=== PATIENT | female | born 1970 | race Asian ===

== ENCOUNTER 2016-08-06 17:20 | Emergency (ER) | payer OTHER ==
[~2016-08-06] VITALS: Ht 147.3 cm; Wt 48.1 kg
[2016-08-06 17:26] VITALS: BP 132/73
== END 2016-08-06 19:15 | disposition home or self-care (01) ==
LOC: ER 17:20
DX: J20.9 Acute bronchitis, unspecified (principal)
CPT/HCPCS: 71010; 99283; A4606; Z7610

== ENCOUNTER 2017-05-28 16:38 | Emergency (ER) | payer OTHER ==
[~2017-05-28] VITALS: Ht 160 cm; Wt 50.9 kg
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
--- NOTE | 2017-05-28 19:00 | NUR ---
RECEIVED REPORT FROM RHONDA ADLER.
--- NOTE | 2017-05-28 19:39 | NUR ---
PT OK TO DISCHARGE PER DR PALMER. Patient discharged to home in stable condition. Written and verbal after care instructions given. Patient verbalizes understanding of instruction.Patient is awake and alert to self, day, and place. PT ambulatory with a steady gait
[2017-05-28 19:55] VITALS: BP 128/66
== END 2017-05-28 19:55 | disposition home or self-care (01) ==
LOC: ER 16:41
DX: S69.82XA Other specified injuries of left wrist, hand and finger(s), initial encounter (principal); S69.81XA Other specified injuries of right wrist, hand and finger(s), initial encounter; S89.82XA Other specified injuries of left lower leg, initial encounter; V49.49XA Driver injured in collision with other motor vehicles in traffic accident, initial encounter; Y93.89 Activity, other specified; Y92.413 State road as the place of occurrence of the external cause; Y99.8 Other external cause status
CPT/HCPCS: 73110; 73130-TC; 73564-TC; A4606; Z7610

== ENCOUNTER 2019-05-05 10:17 | Emergency (ER) | payer BC, OTHER ==
[~2019-05-05] VITALS: Ht 149.9 cm; Wt 46.3 kg
[2019-05-05 10:32] VITALS: BP 114/70
[2019-05-05] MEDS ORDERED: AMOX/CLAVULANATE 875 MG TABLET ONE (11:26)
[2019-05-05] MEDS ORDERED: AMOX/CLAVULANATE 875 MG TABLET PO ONE (11:30)
== END 2019-05-05 11:36 | disposition home or self-care (01) ==
LOC: ER 10:21
DX: S61.431A Puncture wound without foreign body of right hand, initial encounter (principal); W55.01XA Bitten by cat, initial encounter; Y93.89 Activity, other specified; Y92.89 Other specified places as the place of occurrence of the external cause; Y99.8 Other external cause status

== ENCOUNTER 2021-09-12 13:06 | Inpatient (IN) | payer BC ==
[~2021-09-12] VITALS: Ht 147.3 cm; Wt 49.0 kg
[2021-09-12] VITALS (9 sets, daily range): BP systolic 118–152; BP diastolic 66–102
--- NOTE | 2021-09-12 13:35 | NUR ---
BIBSELF C/O MIDSTERNAL CHEST PRESSURE 8/10 RAD TO LT CHEST, LT ARM & JAW WITH SOB SINCE 1115. DENIES DIZZINESS, ESQUIVEL, N/V. IN ROOM AIR AND OXYGEN SATURATION LEVEL IS AT 97%. RESPIRATION REGULAR AND UNLABORED. ATTACHED THE PATIENT TO THE MONITOR. WARM BLANKET PROVIDED FOR COMFORT. WILL CONTINUE TO MONITOR THE PATIENT.
--- NOTE | 2021-09-12 13:35 | NUR ---
Note undone in EDM - 09/12/21 at 1418 by JONNATHAN BIBSELF C/O MIDSTERNAL CHEST PRESSURE 8/10 RAD TO LT CHEST, LT ARM & JAW WITH SOB SINCE 1114. DENIES DIZZINESS, ESQUIVEL, N/V. IN ROOM AIR AND DENIES SOB. RESPIRATION REGULAR AND UNLABORED. ATTACHED THE PATIENT TO THE MONITOR. WARM BLANKET PROVIDED FOR COMFORT. WILL CONTINUE TO MONITOR THE PATIENT.
--- NOTE | 2021-09-12 14:00 | NUR ---
IV LINE IS ESTABLISHED, BLOOD SPECIMEN COLLECTED AND SENT TO THE LAB. THE LINE IS SALINE LOCKED.
--- NOTE | 2021-09-12 14:19 | NUR ---
X-RAT TECH AT THE BEDSIDE
[2021-09-12] MEDS ORDERED: NITROGLYCERIN 0.4 MG/TAB BOTTLE ONE (14:27)
[2021-09-12] MEDS ORDERED: ASPIRIN 325 MG TABLET ONE (14:27)
[2021-09-12] MEDS ORDERED: NITROGLYCERIN 0.4 MG/TAB BOTTLE SL ONE (14:30)
[2021-09-12] MEDS ORDERED: ASPIRIN 325 MG TABLET PO ONE (14:30)
[2021-09-12 14:53] LABS: BASOPHILS # (AUTO) 0.1 K/uL (0.0-0.2); BASOPHILS % (AUTO) 0.6 % (0.0-2.0); EOSINOPHILS % (AUTO) 1.4 % (0.0-6.0); HEMATOCRIT 38 % (33-45); LYMPHOCYTES # (AUTO) 1.4 K/uL (0.8-4.8); LYMPHOCYTES % (AUTO) 15.4 % (20.0-44.0); MEAN CORPUSCULAR HGB CONC 34 g/dl (31.0-36.0); MEAN CORPUSCULAR VOLUME 98 fL (82-100); MONOCYTES # (AUTO) 0.3 K/uL (0.1-1.30); MONOCYTES % (AUTO) 3.7 % (2.0-12.0); NEUTROPHILS # (AUTO) 7.3 K/uL (1.8-8.9); NEUTROPHILS % (AUTO) 78.9 % (43.0-81.0); PLATELET COUNT (AUTO) 289 K/uL (150-450); RED BLOOD CELL COUNT(AUTO) 3.91 MIL/uL (4.0-5.2); WHITE BLOOD COUNT (AUTO) 9.3 K/uL (4.3-11.0)
[2021-09-12 15:19] LABS: CALCIUM, SERUM 8.7 mg/dL (8.5-10.1); CARBON DIOXIDE 28 mmol/L (21-32); CHLORIDE 104 mmol/L (98-107); CREATININE 0.6 mg/dL (0.6-1.3); GLUCOSE 99 mg/dL (74-106); POTASSIUM 3.5 mmol/L (3.5-5.1); SODIUM SERUM 137 mmol/L (136-145); UREA NITROGEN, BLOOD 11 mg/dL (7-18)
[2021-09-12] MEDS ORDERED: HEPARIN SODIUM, PORCINE 5000 UNITS/1 ML VIAL IV ONE ×3 (17:00→18:00)
[2021-09-12] MEDS ORDERED: HEPARIN INFUSION/D5W 500 ML IV ONE ×2 (17:00→18:00)
[2021-09-12] MEDS ORDERED: NITROGLYCERIN PACKET 1 GM PACKET TOP ONE (17:00)
[2021-09-12] MEDS ORDERED: NITROGLYCERIN PACKET 1 GM PACKET ONE (17:07)
--- NOTE | 2021-09-12 17:19 | NUR ---
COVID ANTIGEN SWAB AND SENT TO LAB
[2021-09-12] MEDS ORDERED: HEPARIN SODIUM, PORCINE 5000 UNITS/1 ML VIAL ONE (17:26)
--- NOTE | 2021-09-12 17:28 | NUR ---
RECEIVED NEW ORDER FROM DR WALTERS TO DISCONTINUE HEPARIN 2800 UNITS. THE ORDER IS READ BACK, VERIFIED. NOTED AND CARRIED OUT. NEW ORDER PER DR WALTERS: TO GIVEN HEPARIN 3430 UNITS IV ONCE. THE ORDER IS READ BACK, VERIFIED. NOTED AND CARRIED OUT.
--- NOTE | 2021-09-12 17:44 | NUR ---
DR WALTERS CHANGED HEPARIN IV PUSH ORDER. DISCONTINUE HEPARIN 3430 IV PUSH ONCE. NEW ORDER HEPARIN 3000 UNITS IV PUSH ONCE. THE ORDERS ARE READ BACK, VERIFIED. NOTED AND CARRIED OUT.
--- NOTE | 2021-09-12 18:08 | NUR ---
[facility] CALLED SEAM SEWER PAGED.
--- NOTE | 2021-09-12 18:36 | NUR ---
PTT AT [address] WALTERS. NOTED AND CARRIED OUT.
--- NOTE | 2021-09-12 18:54 | NUR ---
BED: TELE 329. PER NURSING SUP, REPORT TO BE GIVEN AFTER CHANGE OF SHIFT
--- NOTE | 2021-09-12 18:58 | NUR ---
PER TNT LINE SUPERVISOR CAVAZOS THE PATIENT TO GO TO ICU
--- NOTE | 2021-09-12 19:24 | NUR ---
REPORT GIVEN TO NURSE MARTIN FOR ZAY
--- NOTE | 2021-09-12 19:33 | NUR ---
AFTER HOURS PHARMACY PAGED FOR NITRO DRIP VERIFICATION
--- NOTE | 2021-09-12 19:38 | NUR ---
icu 255
[2021-09-12] MEDS ORDERED: NTG 50 MG/D5W250 ML BOTTL 250 ML IV ONE (19:44)
[2021-09-12] MEDS: NTG 50 MG/D5W250 ML BOTTL 250 ML IV PRN ×2 (19:54→20:38)
--- NOTE | 2021-09-12 19:55 | NUR ---
18G IV LINE ESTABLISHED AT . NITRO DRIP INITATED AT SITE AT 5MCG/MIN.
--- NOTE | 2021-09-12 19:59 | NUR ---
CALLED FOR REPORT. NURSE WILL CALL BACK.
[2021-09-12] MEDS ORDERED: Z GUARD REMEDY 4 OZ OINT TP PRN (20:00)
[2021-09-12] MEDS ORDERED: MORPHINE SULFATE INJ 2 MG/ML DISP.SYRIN IV PRN (20:00)
[2021-09-12] MEDS ORDERED: ONDANSETRON HCL/PF 4 MG/2 ML VIAL IVP PRN (20:00)
[2021-09-12] MEDS ORDERED: HEPARIN INFUSION/D5W 500 ML IV PRN (20:00)
[2021-09-12] MEDS ORDERED: ZOLPIDEM TARTRATE 5 MG TABLET PO PRN (20:00)
[2021-09-12] MEDS ORDERED: ACETAMINOPHEN 325 MG TABLET PO PRN (20:00)
[2021-09-12] MEDS ORDERED: MAG HYDROX/AL HYDROX/SIMETH 30 ML UDC PO PRN (20:00)
--- NOTE | 2021-09-12 20:15 | NUR ---
REPORT GIVEN TO JOSE DAVID
--- NOTE | 2021-09-12 20:46 | NUR ---
pt transported to room 255 on population health manager per acls protocol. heparin infusing at 885units/hr at 20g rac. nitro infusing at 5mcg/min at 18g lf. v/s stable at time of transfer.
--- NOTE | 2021-09-12 22:30 | NUR ---
EMERGENCY SERVICES DIRECTOR 2199 PT C/O CHEST PAIN 7/10 UNDER STERNUM TO LEFT ARM. STAT EKG OPRDERED AND NITRO DRIP INCREASED TO 10 MCG/MIN. DECLINES MORPHINE. O2 2L VIA NC PLACED. 2204 PT EATING GUMMI BEARS SMILING TEXTING C/O CHEST PAIN 6/10 UNDER STERNUM TO LEFT ARM NITRO DRIP INCREASED TO 15 MCG/MIN 2229 PT ASLEEP REQUESTING FOR NURSE TO FILM HER WHILE IN HOSPITAL TO SEND TO FRIEND. PER PT COMFORTABLE AT THIS TIME PAIN HAS DECREASED TO 3/10. PT INSTRUCTED TO CALL NURSE IF PAIN INCREASES AGAIN. PT VERBALZED UNDERSTANDING. Addendum: 09/12/21 at 2312 by JOSE DAVID MONTANEZ RN ADVISED PT NOT TO EAT ANYMORE IN CASE SHE HAS A PROCEDURE IN AML LAST PO INTAKE 2204.
[2021-09-13] VITALS (51 sets, daily range): BP systolic 107–147; BP diastolic 17–97
--- NOTE | 2021-09-13 01:45 | NUR ---
CHANNEL OPENER OUTSOLES PER PT SHE REMOVED NASAL CANNULA IT WAS BOTHERING HER
--- NOTE | 2021-09-13 02:00 | NUR ---
COAL PICKER PER HEPARIN DRIP PROTOCOL HOLD INFUSION FOR 60 MINS THEN IN ONE HOUR DECREASE RATE BY 150 UNITS TO 735 UNITS/ HR; PTT @ 0900
[2021-09-13 04:59] LABS: HEMATOCRIT 37 % (33-45); HEMOGLOBIN 12.4 g/dL (11.5-14.8); LYMPHOCYTES # (AUTO) 1.6 K/uL (0.8-4.8); LYMPHOCYTES % (AUTO) 31.2 % (20.0-44.0); MEAN CORPUSCULAR HGB CONC 34 g/dl (31.0-36.0); MEAN CORPUSCULAR VOLUME 98 fL (82-100); MONOCYTES # (AUTO) 0.3 K/uL (0.1-1.30); MONOCYTES % (AUTO) 6.3 % (2.0-12.0); NEUTROPHILS # (AUTO) 2.9 K/uL (1.8-8.9); NEUTROPHILS % (AUTO) 57.5 % (43.0-81.0); PLATELET COUNT (AUTO) 273 K/uL (150-450); RED BLOOD CELL COUNT(AUTO) 3.75 MIL/uL (4.0-5.2); WHITE BLOOD COUNT (AUTO) 5.1 K/uL (4.3-11.0)
[2021-09-13 05:20] LABS: ALBUMIN 3.4 g/dL (3.4-5.0); BILIRUBIN,DIRECT 0.2 mg/dL (0.0-0.2); BILIRUBIN,TOTAL 0.6 mg/dL (0.2-1.0); CALCIUM, SERUM 8.7 mg/dL (8.5-10.1); CREATININE 0.5 mg/dL (0.6-1.3); PHOSPHORUS 3.6 mg/dL (2.5-4.9); POTASSIUM 3.4 mmol/L (3.5-5.1); TOTAL PROTEIN, SERUM 6.3 g/dL (6.4-8.2)
--- NOTE | 2021-09-13 07:00 | NUR ---
RN NOTES RECEIVED PT ON BED, A/Ox4, ON RA , O2 SAT WNL, DENIES ANY CHEST PAIN AT THIS TIME, ON TELE SR , HR IN 60'S , ON HEPARIN DRIP AT 735 UNITS/HR ,AND , NITRO AT 5 MCG/MIN, IV SITES CLEAN ,DRY AND INTACT, SR UP x3, CALL LIGHT WITHIN EASY REACH, BED LOCKED AND IN LOWEST POSITION, CONTINUE TO MONITOR .
[2021-09-13] MEDS: PANTOPRAZOLE 40 MG TABLET.DR PO SCH (07:38)
[2021-09-13] MEDS ORDERED: NITROGLYCERIN 0.4 MG/TAB BOTTLE SL PRN (09:00)
[2021-09-13] MEDS ORDERED: POTASSIUM CHLORIDE 20 MEQ TAB.PRT.SR PO ONE (09:00)
--- NOTE | 2021-09-13 09:00 | NUR ---
RN NOTES PT REFUSED TO HAVE NIRO DRIP RATE INCREASE PER PROTOCAL DUE TO C/O ESQUIVEL .
[2021-09-13] MEDS: POTASSIUM CL. PREMIX PERIPHER. 50 ML IV SCH ×2 (10:17→10:49)
--- NOTE | 2021-09-13 10:53 | NUR ---
RN NOTES HEPARIN DRIP D/SINAN PER DR BLACKMON ORDER , PT GOING FOR HEART CATH.
--- NOTE | 2021-09-13 11:02 | NUR ---
RN NOTES PT TO SOFTWARE ENGINEER MOBILE AT THIS TIME .
[2021-09-13] MEDS ORDERED: IODIXANOL 150 ML IV ONE ×2 (11:17→13:44)
[2021-09-13] MEDS ORDERED: IV NS 0.9% 1,000 ML ONE ×2 (11:17→13:43)
[2021-09-13] MEDS ORDERED: MIDAZOLAM HCL 2 MG/2ML VIAL ONE ×2 (11:18→13:44)
[2021-09-13] MEDS ORDERED: LIDOCAINE HCL/PF 1% 30 ML SDV ONE ×2 (11:18→13:47)
[2021-09-13] MEDS ORDERED: FENTANYL PF 100MCG/2ML AMPUL ONE ×2 (11:18→13:44)
[2021-09-13] MEDS ORDERED: NITROGLYCERIN IN 5 % DEXTROSE 250 ML IV ONE (11:18)
[2021-09-13] MEDS ORDERED: HEPARIN SODIUM, PORCINE 1,000 UNIT/ML VIAL ONE (11:18)
[2021-09-13] MEDS ORDERED: IV SET PRIMARY PUMP SET 1 EA INFUS.SET MC ONE (11:19)
[2021-09-13] MEDS ORDERED: CLOPIDOGREL BISULFATE 300 MG TABLET ONE (12:19)
[2021-09-13] MEDS ORDERED: ASPIRIN 325 MG TABLET ONE (12:22)
--- NOTE | 2021-09-13 12:52 | NUR ---
RN NOTES RECEIVED PT FROM [employer]OP[employer] HRMS DEVELOPER , PT IS A/Ox4, , ON RA, O2 SAT WNL, NO DISTRESS NOTED , ON TELE SB-SR , TR BAND COMPRESSION DEVICE ON AND ALIENED WITH GREEN MARKER , BALLOON INFLATED 14 CC OF AIR ON RIGHT WRIST , SMALL AMOUNT OF BLOODY DRAINING NOTED, PT ABLE TO MOVE HIS FINGERS , DENIES ANY NUMBNESS AND TINGLING, STRONG POSITIVE RIGHT RADIAL PULSE NOTED ON PALPATION,. RIGHT GROIN DRESSING CLEAN, DRY AND INTACT, SOFT TO TOUCH , NO HEMATOMA NOTED, POSITIVE DP AND PT PULSES, LEGS WARM TO TOUCH, HEPARIN DRIP AND NITRO OFF AT THIS TIME PER DR BLACKMON ORDER , CONTINUE TO MONITOR
[2021-09-13] MEDS ORDERED: POTASSIUM CHLORIDE 10 MEQ TABLET.SA PO ONE (13:00)
--- NOTE | 2021-09-13 13:00 | NUR ---
RN NOTES PT REFUSED IV KCL, ORDER CHANGED TO PO PER MD ORDER .
[2021-09-13] MEDS: ATORVASTATIN 40 MG TABLET PO SCH ×2 (13:12→21:42)
--- NOTE | 2021-09-13 15:40 | NUR ---
RN NOTES TR BAND OFF, SITE CLEAN ,DRY AND INTACT, SOFT TO TOUCH , NO COMPLICATION NOTED , HEPARIN DRIP RESTARTED, PER DR ANTONIO ORDER .
--- NOTE | 2021-09-13 17:14 | NUR ---
RN NOTES R GROIN DRESSING CLEAN, DRY , SOFT TO TOUCH , NO COMPLICATION NOTED , HOB ELEVATED 20 DEGREE, PT DENIES ANY DISTRESS, CONTINUE TO MONITOR .
--- NOTE | 2021-09-13 18:05 | NUR ---
RN NOTES PT DENIES ANY CHEST PAIN, R GROIN AND R WRIST DRESSING , CLEAN, DRY AND INTACT, NO COMPLICATION NOTED, SR UP x3, CALL LIGHT WITHIN EASY REACH, BED LOCKED AND IN LOWEST POSITION, WILL ENDORSE TO MERCHANDISING MANAGER NURSE FOR CONTINUITY OF CARE .
--- NOTE | 2021-09-13 19:38 | NUR ---
RN NOTE RECEIVED PT AWAKE, ALERT AND ORIENTED. DENIES ANY PAIN OR SOB. NOT IN ANY DISTRES. R WRIST, R GROIN DRESSING INTACT, NO BLEEDING NO SWELLING NOTED. PT ON HEPARIN DRIP AT 685 U/HR, R AC IV PATENT AND INTACT. WILL CONTINUE TO MONITOR.
--- NOTE | 2021-09-13 20:45 | NUR ---
HAIRSPRING I INSPECTORDANCE COACH NOTE PATIENT TRANSFERRED FROM ICU IN STABLE CONDITION, PATIENT ALERT/ORIENTED X 4, PT ABLE TO MAKE NEEDS KNOWN. PATIENT STABLE ON RA, NO S/S OF RESPIRATORY DISTRESS OR SOB NOTED, BREATHING EVEN AND UNLABORED. PATIENT ON EXTERNAL LIBRARY CIRCULATION ASSISTANT, READING SINUS DONALD, HR: 55. IV ACCESS ON LEFT FOREARM #28G INTACT AND INFUSING HEPARIN DRIP @ 685 UNITS/HR. IV ACCESS ON RIGHT AC #20G REMOVED PER PATIENT REQUEST D/T DISCOMFORT/PAIN. 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 SAFETY MEASURES IN PLACE: CALL LIGHT WITHIN REACH, SIDE RAILS UP X 2, BED LOCKED IN LOWEST POSITION. WILL CONTINUE TO MONITOR PATIENT
--- NOTE | 2021-09-13 20:45 | NUR ---
RN NOTE TRANSFERRED PT TO RM 102, GAVE REPORT TO JULIO C. PT NOT IN ANY DISTRESS. DENIES ANY PAIN. R WRIST. RGROIN DRESSING CLEAN DRY AND INTACT. CONTINUE ON HEPARIN DRIP. ALL BELONGINGS CHECKED AND BROUGHT TO UNIT.
[2021-09-13] MEDS: METOPROLOL TARTRATE 25 MG TABLET PO SCH (21:00)
--- NOTE | 2021-09-13 21:20 | NUR ---
2119 SUMMONED TO PATIENT ROOM, PATIENT STATED SHE TRIED TO SIT UP AND SHE FELT A "POP" ON HER RIGHT GROIN WHERE THEY ACCESS HEART CATH . ASSESS SITE AND NOTED WITH HARD BUMP UNDER THE DRESSING AND AROUND IT. NO VISIBLE SIGN OF HEMATOMA NOTED. PATIENT WITH C/O TENDERNESS. PRESSURE APPLIED ON AREA AND MARKED IT. PATIENT C/O MILD PAIN BUT REFUSE PAIN MEDICINE. DR. PARRA NOTIFIED WITH ORDER TO STOP HEPARIN GTT AND CONT. TO APPLY PRESSURE FOR 10 MINUTES. ORDER NOTED AND CARRIED OUT.
--- NOTE | 2021-09-13 21:28 | NUR ---
ORDER FILLER NOTE PATIENT SINUS DONALD, HR: [id number]. HELD SCHEDULED LOPRESSOR
--- NOTE | 2021-09-13 22:09 | NUR ---
LEAN SIX SIGMA SENIOR SPECIALIST NOTE FOLLOWED UP WITH DR. PARRA REGARDING HEPARIN DRIP PER PATIENT REQUEST, PT WANTED TO MAKE SURE HEPARIN DRIP CAN BE DISCONTINUED BECAUSE THEY WERE INSISTING ON RESUMING IT 2 HOURS AFTER TR BAND WAS REMOVED. PER MD IF PATIENT IS NOT EXPERIENCING CHEST PAIN THERE IS NO REASON FOR HER TO CONTINUE ON HEPARIN DRIP. PER MD IT SHOULD DEFINITELY BE STOPPED IF THERE'S CONCERN FOR HEMATOMA ON RIGHT GROIN AREA. SWELLING IN RIGHT GROIN REDUCED AND PAIN WELL. PER MD D/C HEPARIN DRIP UNTIL THE MORNING AND CAN FOLLOW UP WITH DR. BLACKMON IN THE MORNING REGARDING IF IT NEEDS TO BE RESUMED.
--- NOTE | 2021-09-13 23:10 | NUR ---
2310 RE ASSESSED RIGHT GROIN, NO VISIBLE SIGNS OF HEMATOMA NOTED. PATIENT DENIED PAIN WHEN ASKED. SITE NEUROPSYCHOLOGIST TO TOUCH. BUMP FELT SOFTER WHEN PALPATED. DRESSING INTACT AND CLEAN. KEPT PATIENT COMFORTABLE. ALL NEEDS ANTICIPATED.
[2021-09-14] VITALS: BP 106/60
[2021-09-14 04:00] VITALS: BP 117/77
--- NOTE | 2021-09-14 05:00 | NUR ---
0500 ASSESSED RIGHT GROIN. NO SIGNS OF HEMATOMA NOTED. TENDERNESS ON SITE SUBSIDED. DRESSING INTACT. PATIENT DENIES PAIN. ASSISTED TO BATHROOM. AM CARE PROVIDED. LINENS CHANGED. PATIENT CONT. TO DENY CHEST PAIN. CALL LIGHT PLACED WITHIN REACH AND REMINDED TO CALL FOR ASSISTANCE.
[2021-09-14 06:32] LABS: BASOPHILS # (AUTO) 0.1 K/uL (0.0-0.2); BASOPHILS % (AUTO) 0.8 % (0.0-2.0); EOSINOPHILS % (AUTO) 3.9 % (0.0-6.0); HEMATOCRIT 40 % (33-45); HEMOGLOBIN 13.5 g/dL (11.5-14.8); LYMPHOCYTES # (AUTO) 1.9 K/uL (0.8-4.8); LYMPHOCYTES % (AUTO) 27.6 % (20.0-44.0); MEAN CORPUSCULAR HGB CONC 34 g/dl (31.0-36.0); MEAN CORPUSCULAR VOLUME 99 fL (82-100); MONOCYTES # (AUTO) 0.5 K/uL (0.1-1.30); MONOCYTES % (AUTO) 7.3 % (2.0-12.0); NEUTROPHILS # (AUTO) 4.3 K/uL (1.8-8.9); NEUTROPHILS % (AUTO) 60.4 % (43.0-81.0); PLATELET COUNT (AUTO) 264 K/uL (150-450); RED BLOOD CELL COUNT(AUTO) 4.04 MIL/uL (4.0-5.2); WHITE BLOOD COUNT (AUTO) 7.1 K/uL (4.3-11.0)
[2021-09-14 06:50] LABS: CREATININE 0.6 mg/dL (0.6-1.3); POTASSIUM 3.7 mmol/L (3.5-5.1)
[2021-09-14] MEDS: PANTOPRAZOLE 40 MG TABLET.DR PO SCH (07:30)
--- NOTE | 2021-09-14 07:40 | NUR ---
AUDIOLOGIST CLOSING NOTE PATIENT SLEEPING IN BED, ALERT/ORIENTED X 4, PT ABLE TO MAKE NEEDS KNOWN. PATIENT STABLE ON RA, NO S/S OF DISTRESS OR SOB NOTED, BREATHING EVEN AND UNLABORED. PATIENT ON TELE MONITOR READING SINUS RHYTHM, HR: 75, PERIODS OF BRADYCARDIA DURING SHIFT. LEFT FOREARM IV ACCESS INTACT AND SALINE LOCKED. PATIENT WAS ABLE TO AMBULATE TO BATHROOM WITH SBA. NO S/S OF BLEEDING OR HEMATOMA ON RIGHT GROIN, NO CHEST PAIN THROUGHOUT SHIFT. SAFETY MEASURES IN PLACE: CALL LIGHT WITHIN REACH, SIDE RAILS UP X 2, BED LOCKED IN LOWEST POSITION, BED ALARM ON.
[2021-09-14 08:00] VITALS: BP 106/61
--- NOTE | 2021-09-14 08:11 | NUR ---
EDUCATION COORDINATOR NOTE PATIENT IN BED ALERT ORIENTED, ON RA NO SOB NOTED AT THIS TIME, LAC HL INTACT , ALL NEEDS ATTENDED WILL CONT TO MONITOR
[2021-09-14] MEDS: METOPROLOL TARTRATE 25 MG TABLET PO SCH (08:20)
[2021-09-14] MEDS ORDERED: ASPIRIN 325 MG TABLET PO SCH (09:00)
[2021-09-14] MEDS ORDERED: CLOPIDOGREL BISULFATE 75 MG TABLET PO SCH (09:00)
--- NOTE | 2021-09-14 10:18 | NUR ---
SYSTEMS CONSULTANT NOTE PER REPORT FORENSIC SERGEANT RN HEPARIN WAS D\ C BY DR SILVA
[2021-09-14] MEDS ORDERED: ASPI-992 PO (11:48)
[2021-09-14] MEDS ORDERED: ATOR40TA PO (11:48)
[2021-09-14] MEDS ORDERED: CLOP75TA15 PO (11:48)
[2021-09-14] MEDS ORDERED: METO25TA20 PO (11:48)
[2021-09-14 12:00] VITALS: BP 122/73
--- NOTE | 2021-09-14 13:44 | NUR ---
teletype adjuster note per dr sharifa rahman to d\c heme stated that will await dr nascimento children's librarian prior go home , will f\u
[2021-09-14] MEDS ORDERED: NITROGLYCERIN 0.4 MG/TAB BOTTLE SL PRN (14:30)
[2021-09-14] MEDS ORDERED: METOPROLOL TARTRATE 25 MG TABLET PO ONE (15:00)
--- NOTE | 2021-09-14 15:35 | NUR ---
telegraph office manager note per dr nascimento and dr skaggs ok to discharge home , discharge instruction given ,understand , hl removed , tele removed , also instructed how to take new px and possible side effects olso dr nascimento gear hobber operator recommendation to added to dr skaggs nitro sl , stated that will do latter on , also per dr nascimento recommendation to take Lopressor 12,5 mg bid , instructed patient how to take medication, belonging checked by shara Omalley
[2021-09-14 16:00] VITALS: BP 113/68
--- NOTE | 2021-09-14 16:20 | NUR ---
television journalist note taken to lobby on w\c with stable condition
[2021-09-14] MEDS ORDERED: NITR0.4T48 SL (17:07)
[2021-09-14] MEDS ORDERED: METOPROLOL TARTRATE 25 MG TABLET PO SCH (21:00)
== END 2021-09-14 14:23 | disposition home or self-care (01) | DRG 280 ==
LOC: ER 13:30 → TELE 19:28 → ICU 19:39 → TELE1 09-13 20:25
PROVIDERS: ADMIT Nurse Practitioner Family; ATTEND Internal Medicine
PROC: 4A023N7 Measurement of Cardiac Sampling and Pressure, Left Heart, Percutaneous Approach (ICD-10-PCS; principal; 2021-09-13)
PROC: B211YZZ Fluoroscopy of Multiple Coronary Arteries using Other Contrast (ICD-10-PCS; 2021-09-13)
DX: I21.4 Non-ST elevation (NSTEMI) myocardial infarction (principal); I25.42 Coronary artery dissection; Z20.822 Contact with and (suspected) exposure to COVID-19; Z79.899 Other long term (current) drug therapy; E87.6 Hypokalemia; Z82.49 Family history of ischemic heart disease and other diseases of the circulatory system; I51.89 Other ill-defined heart diseases
CPT/HCPCS: 36415; 71045-TC; 80048-TC; 80061-TC; 80076-TC; 83735-TC; 83880; 84100-TC; 84484-TC; 85025-TC; 85378-TC; 85730-TC; 87081-TC; 93307-TC; C1887; C1894; C9803; G0378; G0500; J1644; J2250; J3010; J3480; J3490; J7030; J7040; Q9967